=== PATIENT | male | born 1970 | race American Indian/Alaskan Native ===

== ENCOUNTER 2016-08-16 09:50 | Emergency (ER) | payer OTHER, BC ==
[2016-08-16] MEDS ORDERED: CATAPRES PO ONE (16:42)
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
[2016-08-16 18:56] VITALS: BP 170/110
== END 2016-08-16 19:19 | disposition home or self-care (01) ==
LOC: ED 09:50
DX: R51 Headache (principal); I10 Essential (primary) hypertension; V89.2XXA Person injured in unspecified motor-vehicle accident, traffic, initial encounter; Y92.488 Other paved roadways as the place of occurrence of the external cause; Y93.89 Activity, other specified; Y99.8 Other external cause status; Z88.2 Allergy status to sulfonamides
CPT/HCPCS: 70450